=== PATIENT | male | born 1980 | race Caucasian/White ===

== ENCOUNTER 2020-08-30 14:34 | Emergency (ER) | payer OTHER, SELFPAY ==
[2020-08-30] VITALS (7 sets, daily range): BP systolic 118–150; BP diastolic 74–96; PULSE 62–97; RESP 14–18; TEMP 36.2–36.4; O2SAT 95–100; BMI 31.2
--- NOTE | 2020-08-30 15:13 | CT_ITS ---
WS: [id number] CT cervical spin wo con* [id number] REASON FOR EXAM: neck pain s/p fall IV CONTRAST ADMINISTERED: Noncontrast TOTAL EXAM DLP: 638.[address] scans at [facility] use at least one of these dose optimization techniques: automat ed exposure control; mA and/or kV adjustment per patient size (includes targeted exams where dose is matched to clinical indication); or iterative reconstruction. FINDINGS: No vertebral body compression deformity. Normal alignment of the cervical vertebral bodies. Normal odontoid. Normal atlantoaxial articulations. Normal facet joints. Mild to moderate narrowing of the C7-T1 disc interspace, otherwise no significant disc disease. No soft tissue abnormality. CT/CT cervical spin wo con* [id number] IMPRESSION: No acute abnormality.
--- NOTE | 2020-08-30 15:13 | CT_ITS ---
WS: [id number] CT head wo con* [id number] REASON FOR EXAM: head injury IV CONTRAST ADMINISTERED: Noncontrast TOTAL EXAM DLP: 915.[address] scans at [facility] use at least one of these dose optimization techniques: automat ed exposure control; mA and/or kV adjustment per patient size (includes targeted exams where dose is matched to clinical indication); or iterative reconstruction. FINDINGS: The bony calvarium intact. There is no midline shift or other significant mass effect. No findings of intracranial hemorrhage. No focal brain parenchymal abnormality. Normal ventricles. Normal posterior fossa. CT/CT head wo con* [id number] IMPRESSION: No acute intracranial abnormality.
[2020-08-30 16:09] LABS: Add Urine Microscopic? NO
[2020-08-30 16:31] LABS: Bilirubin Urine Neg (Negative); Blood Urine Neg (Negative); Glucose Urine UA Norm (Normal); Ketones Urine Negative (Negative); Leukocyte Esterase Urine Negative (Negative); Nitrate Urine Negative (Negative); Protein Urine Neg (Negative); Urine Appearance Clear (CLEAR); Urine Color Yellow (Yellow); Urobilinogen Urine 1 mg/dL (Negative); pH Urine 5 (5-7)
--- NOTE | 2020-08-30 16:32 | PC.NURSE ---
Pt ambulating in WR. Pt reports he has been going outside to get some fresh air d/t anxiety with mask on and too many people.
--- NOTE | 2020-08-30 18:22 | ED_ITS ---
HPI - Syncope General: Chief Complaint: Syncope Stated Complaint: fell out of truck/lost consciousness Time Seen by Provider: 08/30/20 18:22 Source: patient Mode of arrival: ambulatory Limitations: no limitations Review of Systems General: Reports: 10 or more systems reviewed and unremarkable except in HPI and below Physical Exam Const: COMMON NORMALS: no acute distress and patient oriented x3 GENERAL APPEARANCE: cooperative HENMT: COMMON NORMALS: normocephalic, TM's normal bilaterally and Normal external nose present HEAD & SCALP: normal to inspection and normocephalic NOSE: Normal external nose present TYMPANIC MEMBRANE: TM's normal bilaterally MOUTH: Normal oral and palatal mucosa present THROAT: posterior oropharynx normal Eye: GENERAL EYE: appearance normal, both eyes and all related structures Neck/C-Spine: COMMON NORMALS: full ROM Lymph: LYMPHATIC: no lymphadenopathy noted Chest: COMMONS NORMALS: normal inspection of the chest Resp: COMMON NORMALS: normal respiratory effort EFFORT & INSPECTION: Yes able to speak in complete sentences Cardio: COMMON NORMALS: regular rate and regular rhythm RATE: regular rate RHYTHM: regular rhythm GI: COMMON NORMALS: non-tender : COMMON NORMALS: Yes no CVA tenderness BLADDER/KIDNEY EXAM: Yes no CVA tenderness Back/Pelvis: COMMON NORMALS: no CVA tenderness and thoracic and lumbar spine normal to inspection Extremity: COMMON NORMALS: normal to inspection Neuro: COMMON NORMALS: patient oriented x3 and moves all extremities Psych: COMMON NORMALS: mental status grossly normal and cooperative Skin: COMMON NORMALS: no rashes or lesions noted GENERAL SKIN EXAM: no rashes or lesions noted Course Vital Signs: Vital signs: Vital Signs Temperature 97.6 F 08/30/20 17:20 Pulse Rate 62 08/30/20 20:22 Respiratory Rate 14 08/30/20 20:22 Blood Pressure 118/74 08/30/20 20:22 Pulse Oximetry 100 08/30/20 20:22 MDM - Syncope MDM Narrative: Medical decision making narrative: 40-year-old male comes in today after a possible syncopal event and fall. Patient appears well. Patient denies any pain or difficulty except when his left shoulder and back. Differential diagnosis includes vasovagal syncope, ACS, head injury. CT of the head was negative. X-rays of the back, cervical spine, and shoulder were ne gative. Laboratory values were all normal. Troponin was negative. EKG was normal sinus rhythm. Orthostatic blood pressures were normal. Reviewed exam with patient and recommendations for treatment and follow-up. Patient reported understanding and agreed to plan. Lab Data: Labs: Lab Results 08/30/20 08/30/20 08/30/20 Range/Units 15:50 18:30 18:30 WBC 8.6 (4.0-10.0) 10^3/ uL RBC 5.35 H (4.1-5.3) 10^6/u L Hgb 16.0 (11.7-16.6) g/dL Hct 47.6 (42.0-52.0) % MCV 89.0 (80-94) fL MCH 29.9 (28.0-34.0) pg MCHC 33.6 (30.0-36.0) g/dL RDW 12.4 (12.1-15.1) % Plt Count 214 (130-400) 10^3/c mm MPV 11.1 H (7.4-10.4) fL Neut % (Auto) 61.6 % Lymph % (Auto) 30.1 % [place] % (Auto) 5.9 % Eos % (Auto) 1.6 % Baso % (Auto) 0.6 % Neut # (Auto) 5.29 (1.8-7.7) 10^3/u L Lymph # (Auto) 2.6 (0.8-4.8) 10^3/u L [place] # (Auto) 0.5 (0.2-0.9) 10^3/u L Eos # (Auto) 0.1 (0.0-0.8) 10^3/u L Baso # (Auto) 0.1 (0.0-0.1) 10^3/u L Nucleated RBC % (a uto) 0 % Nucleated RBCs # 0.0 /100WBC Sodium 140 (136-145) mmol/L Potassium 4.0 (3.5-5.1) mmol/L Chloride 104 (98-107) mmol/L Carbon Dioxide 27 (22-29) mmol/L Anion Gap 13.0 (5-19) BUN 18 (6-20) mg/dL Creatinine 1.1 (0.7-1.2) mg/dL GFR Calculation 73.4 L (90-130) mL/min Glucose 114 (65-115) mg/dL Calculated Osmolal ity 293 (285-295) mOsm/k g Calcium 9.1 (8.5-10.5) mg/dL Total Bilirubin 0.3 (0.15-1.2) mg/dL AST 15 (0-40) U/L ALT 21 (0-41) U/L Alkaline Phosphata se 69 (40-130) IU/L Troponin T Gen 5 n g/L (0-15) ng/L Total Protein 6.8 (6.6-8.7) g/dL Albumin 4.6 (3.5-5.2) g/dL Globulin 2.2 (1.3-4.6) g/dL Urine Color Yellow (Yellow) Urine Appearance Clear (CLEAR) Urine pH 5 (5-7) Ur Specific Gravit y 1.020 (1.005-1.030) Urine Protein Neg (Negative) Urine Glucose (UA) Norm (Normal) Urine Ketones Negative (Negative) Urine Blood Neg (Negative) Urine Nitrate Negative (Negative) Urine Bilirubin Neg (Negative) Urine Urobilinogen 1 H (Negative) mg/dL Ur Leukocyte Michelle ase Negative (Negative) 08/30/20 Range/Units 18:30 WBC (4.0-10.0) 10^3/ uL RBC (4.1-5.3) 10^6/u L Hgb (11.7-16.6) g/dL Hct (42.0-52.0) % MCV (80-94) fL MCH (28.0-34.0) pg MCHC (30.0-36.0) g/dL RDW (12.1-15.1) % Plt Count (130-400) 10^3/c mm MPV (7.4-10.4) fL Neut % (Auto) % Lymph % (Auto) % [place] % (Auto) % Eos % (Auto) % Baso % (Auto) % Neut # (Auto) (1.8-7.7) 10^3/u L Lymph # (Auto) (0.8-4.8) 10^3/u L [place] # (Auto) (0.2-0.9) 10^3/u L Eos # (Auto) (0.0-0.8) 10^3/u L Baso # (Auto) (0.0-0.1) 10^3/u L Nucleated RBC % (a uto) % Nucleated RBCs # /100WBC Sodium (136-145) mmol/L Potassium (3.5-5.1) mmol/L Chloride (98-107) mmol/L Carbon Dioxide (22-29) mmol/L Anion Gap (5-19) BUN (6-20) mg/dL Creatinine (0.7-1.2) mg/dL GFR Calculation (90-130) mL/min Glucose (65-115) mg/dL Calculated Osmolal ity (285-295) mOsm/k g Calcium (8.5-10.5) mg/dL Total Bilirubin (0.15-1.2) mg/dL AST (0-40) U/L ALT (0-41) U/L Alkaline Phosphata se (40-130) IU/L Troponin T Gen 5 n g/L 6 (0-15) ng/L Total Protein (6.6-8.7) g/dL Albumin (3.5-5.2) g/dL Globulin (1.3-4.6) g/dL Urine Color (Yellow) Urine Appearance (CLEAR) Urine pH (5-7) Ur Specific Gravit y (1.005-1.030) Urine Protein (Negative) Urine Glucose (UA) (Normal) Urine Ketones (Negative) Urine Blood (Negative) Urine Nitrate (Negative) Urine Bilirubin (Negative) Urine Urobilinogen (Negative) mg/dL Ur Leukocyte Michelle ase (Negative) Discharge Plan Discharge Patient Disposition: Home Clinical Impression: Vasovagal syncope Acute shoulder pain due to trauma Qualifiers: Laterality: left Qualified Code(s): M25.512 - Pain in left shoulder Back pain Qualifiers: Back pain location: thoracic back pain Chronicity: acute Back pain laterality: unspecified Qualified Code(s): M54.6 - Pain in thoracic spine Condition: Stable Prescriptions: New EC-Naproxen 500 mg tablet,delayed release (DR/EC) 500 mg PO BID Qty: 20 RF: 0 tizanidine 4 mg tablet 4 mg PO BID PRN (Reason: muscle spasticity) Qty: 14 RF: 0 No Action tramadol 50 mg tablet 50 mg PO TID RF: 0 Discharge Orders: Discharge Order (Routine); Ordered 08/30/20 Ordered By: John Garcia Referrals: Pradeep Matt DO [Primary Care Provider] - Discharge Diet: Usual diet Discharge Activity: Increase activity as tolerated Patient Instructions: Back Pain (ED) Activity Restrictions/Additional Instructions: Drink plenty of fluids. Activity as tolerated. Gentle stretching and range of motion exercises. Healthy diet and activity. Take medications as directed. Follow-up with primary care in 3 days for recheck. Return to the emergency department for new concerns. Discharge Date/Time: 08/30/20 20:23 Coding Level of Care Code ED Senior Statistician for Chg Fwd Exam Comprehensive
--- NOTE | 2020-08-30 18:24 | ECG_ITS ---
[facility] Test Date: 2020-08-30 Pat Name: Yuriy Hennessy Department: Room: Gender: Male Game Operator: : 1980 Requested By: Lyndsey Rock Order Number: [id number] Reading MD: ALMA CARRION Measurements Intervals [place] Rate: 85 P: 37 W[place]: 169 QRS: 93 QRSD: 106 T: 56 QT: 354 QTc: 422 Interpretive Statements SINUS RHYTHM BORDERLINE RIGHT AXIS DEVIATION [QRS AXIS > 90] No previous ECG available for comparison Electronically Signed On 08-30-2020 19:31:47 LABEL FOLDER by ALMA CARRION [email or web address]
--- NOTE | 2020-08-30 18:33 | XRR_ITS ---
PROCEDURE INFORMATION: Exam: XR Left Shoulder Exam date and time: 08/30/2020 7:02 PM Age: 40 years old Clinical indication: Pain and injury or trauma; Blunt trauma (contusions or hematomas); Shoulder; Left; Injury date: 08/30/20; Patient HX: Fall from truck loss of consciousness; Additional info: Fall, pain TECHNIQUE: Imaging protocol: XR Left shoulder. Views: 2 or more views. COMPARISON: No relevant prior studies available. FINDINGS: Bones/joints: Normal. Soft tissues: Normal. XR/XR shoulder LT min 2V* [id number] IMPRESSION: No acute findings.
--- NOTE | 2020-08-30 18:33 | XRR_ITS ---
PROCEDURE INFORMATION: Exam: XR Thoracic Spine, 3 Views Exam date and time: 08/30/2020 7:04 PM Age: 40 years old Clinical indication: Injury or trauma; Blunt trauma (contusions or hematomas); Injury date: 08/30/20; Patient HX: Fall from truck loss of consciousness TECHNIQUE: Imaging protocol: XR of the thoracic spine, 3 views. COMPARISON: [facility] Thoracic Spine 3 views 05/02/2015 10:19 AM FINDINGS: Bones/joints: Minimal convex left upper thoracic scoliosis. No spondylolisthesis. Vertebral body height is maintained. No acute fracture. Visible portions of the ribs are intact. Soft tissues: Unremarkable. Lungs: Visible portions of the lungs are clear. XR/XR thoracic spine 3V* [id number] IMPRESSION: No acute fracture.
[2020-08-30 18:39] LABS: Basophils # 0.1 10^3/uL (0.0-0.1); Basophils % 0.6 %; Eosinophils # 0.1 10^3/uL (0.0-0.8); Eosinophils % 1.6 %; Hematocrit 47.6 % (42.0-52.0); Lymphocytes # 2.6 10^3/uL (0.8-4.8); Lymphocytes % 30.1 %; Mean Corpuscular HGB Conc 33.6 g/dL (30.0-36.0); Mean Corpuscular Hemoglobin 29.9 pg (28.0-34.0); Mean Platelet Volume 11.1 fL (7.4-10.4); Monocytes # 0.5 10^3/uL (0.2-0.9); Monocytes % 5.9 %; Neutrophils # 5.29 10^3/uL (1.8-7.7); Neutrophils % 61.6 %; Nucleated Red Blood Cells % 0 %; Platelet Count 214 10^3/cmm (130-400); Red Blood Count 5.35 10^6/uL (4.1-5.3); Red Cell Distribution Width 12.4 % (12.1-15.1); White Blood Count 8.6 10^3/uL (4.0-10.0)
[2020-08-30 19:05] LABS: Alanine Aminotransferase 21 U/L (0-41); Albumin Level 4.6 g/dL (3.5-5.2); Alkaline Phosphatase 69 IU/L (40-130); Aspartate Amino Transferase 15 U/L (0-40); Blood Urea Nitrogen 18 mg/dL (6-20); Calcium 9.1 mg/dL (8.5-10.5); Carbon Dioxide 27 mmol/L (22-29); Chloride 104 mmol/L (98-107); Globulin 2.2 g/dL (1.3-4.6); Glomerular Filtration Rate 73.4 mL/min (90-130); Glucose 114 mg/dL (65-115); Osmolality Calculated 293 mOsm/kg (285-295); Sodium 140 mmol/L (136-145); Total Bilirubin 0.3 mg/dL (0.15-1.2); Total Protein 6.8 g/dL (6.6-8.7)
[2020-08-30 19:56] LABS: Troponin T (5th) Once 6 ng/L (0-15)
== END 2020-08-30 20:23 | disposition home or self-care (01) ==
PROVIDERS: Nurse Practitioner Family; Emergency Provider Nurse Practitioner Family; PCP Internal Medicine
DX: R55 Syncope and collapse (principal); G89.11 Acute pain due to trauma; M25.512 Pain in left shoulder; M54.6 Pain in thoracic spine
CPT/HCPCS: 12345; 70450; 72072; 72125; 73030; 80053; 81003; 84484; 85025; 93005; 99283

== ENCOUNTER → 2024-09-27 10:17 | Outpatient (BNVA) | payer BC, SELFPAY | PROVIDERS: Visit Provider Family Medicine | DX: Z13.6 Encounter for screening for cardiovascular disorders (principal); K21.9 Gastro-esophageal reflux disease without esophagitis | CPT/HCPCS: 80053; 80061; 83721; 84439; 84443; 85025 ==

== ENCOUNTER 2024-11-15 06:22 | Day surgery (SDC) | payer BC, SELFPAY ==
[2024-11-15 06:33] VITALS: BP 117/88; PULSE 85; RESP 18; TEMP 36.7; O2SAT 96
[2024-11-15] MEDS: sodium chloride 0.9% 500 ML 15 ML IV (06:45)
[2024-11-15 06:47] VITALS: BMI 31.2
--- NOTE | 2024-11-15 07:12 | P.ANESASSM_ITS ---
Pre-Anesthetic Assessment Height/Weight: Height 6 ft 3 in Weight 250 lb Temp Pulse Resp BP Pulse Ox O2 Del Method 98.0 F 85 18 117/88 96 Room Air 11/15/24 06:33 11/15/24 06:33 11/15/24 06:33 11/15/24 06:33 11/15/24 06:33 11/15/24 06:33 Preop Diagnosis: Screening colonoscopy Operation Date: 11/15/24 07:30 Proposed Procedures p [id number], G0121, Z12.11(Not Applicable) - Payam Dumas DO Was Beta Anthony taken within 24 hours: N/A Was Clonidine taken within 24 hours: N/A Last intake: Intake Last Liquid Date 11/14/24 Last Liquid Time 22:00 Last Solid Date 11/13/24 Last Solid Time 19:00 Social Tobacco and No alcohol Exam alert, oriented x 3, clear to auscultation bilaterally and regular rate & rhythm Airway Submandibular: within normal limits Cervical ROM: within normal limits Mallampati: Class II Dentition: full Comments: Comments: Multiple missing teeth on the top, denies any loose Anesthetic Plan ASA status: 2 Anesthesia: MAC Other: No prior issues with anesthesia Completed bowel prep History of GERD, diet controlled On chronic tramadol for back pain Current smoker Labs reviewed from September and acceptable for procedure METs greater than 4 Plan for MAC anesthetic Medications/Allergies Home Medications Medication Instructions Recorded Confirmed Last Taken Type tramadol 50 mg tablet 50 mg PO Q6H PRN Pain 09/27/24 11/14/24 11/14/24 History Allergies Allergy/AdvReac Type Severity Reaction Status Date / Time No Known Allergies Allergy Verified 11/14/24 08:26 [facility] Anesthesia Medical History Umbilical hernia Tobacco use disorder GERD (gastroesophageal reflux disease) Scoliosis Chronic back pain Surgical History Hx of appendectomy Family History Mother Breast cancer Diabetes Grandfather Cancer skin Social History Smoking and tobacco/nicotine status: current every day tobacco/nicotine user cigarettes [ Other cigarette details: 1PPD, 28PY] Alcohol intake: never Substance/Drug Use: never Data Anesthesia Cardiac Studies: No Data to Display
--- NOTE | 2024-11-15 07:32 | W.PM.OPSUD ---
Surgery/Procedure H&P Update DATE OF PROCEDURE: November 15, 2024 DATE H&P PERFORMED: 11/06/24 H&P UPDATE INFORMATION: I have reviewed H&P completed within last 30 days, I have examined patient prior to procedure and No changes to prior documentation PREOP DIAGNOSIS: Screening colonoscopy PLANNED PROCEDURE: Operation Date: 11/15/24 07:30 Proposed Procedures p [id number], G0121, Z12.11(Not Applicable) - Payam Dumas DO
[2024-11-15 08:07] VITALS: BP 109/73; PULSE 90; RESP 18; TEMP 36.2; O2SAT 91
[2024-11-15 08:29] VITALS: BP 117/83; PULSE 75; RESP 18; O2SAT 94
--- NOTE | 2024-11-15 08:45 | ANE.PACU2 ---
Inpatient post-anesthesia follow up: Airway intact: Yes Vital signs: Temperature 97.1 F Pulse Rate 75 Respiratory Rate 18 Blood Pressure 117/83 Pulse Oximetry 94 Oxygen Delivery Me thod Room Air Oxygen Flow Rate Fraction of Inspir ed Oxygen Hydration adequate: Yes Nausea and vomiting: No Pain level: 1 Mental status: Baseline
--- NOTE | 2024-11-15 13:19 | PC.NURSE ---
0800 - Cold snare requested by Dr. Dumas. Inserted into scope but not used.
== END 2024-11-15 08:40 | disposition home or self-care (01) ==
PROVIDERS: Visit Provider Surgery
PROC: 0DJD8ZZ Inspection of Lower Intestinal Tract, Via Natural or Artificial Opening Endoscopic (ICD-10-PCS; CPT 45378; principal; 2024-11-15 07:30)
DX: Z12.11 Encounter for screening for malignant neoplasm of colon (principal); K21.9 Gastro-esophageal reflux disease without esophagitis; Z79.891 Long term (current) use of opiate analgesic; G89.29 Other chronic pain; M54.9 Dorsalgia, unspecified; F17.210 Nicotine dependence, cigarettes, uncomplicated
CPT/HCPCS: 45378; J2371; J2704; J7040

== ENCOUNTER 2024-11-28 09:31 | Day surgery (SDC) | payer BC, SELFPAY ==
[2024-11-28] VITALS (11 sets, daily range): BP systolic 103–136; BP diastolic 75–92; PULSE 60–86; RESP 12–18; TEMP 36.1–37; O2SAT 93–100; BMI 31.2
[2024-11-28] MEDS: sodium chloride 0.9% 1,000 ML 30 ML IV (09:57)
--- NOTE | 2024-11-28 10:46 | ANES.PREANE2 ---
Pre-Anesthetic Assessment Height/Weight: Height 1.91 m Weight 113.398 kg Temp Pulse Resp BP Pulse Ox O2 Del Method 97.0 F L 86 18 125/84 96 Room Air 11/28/24 09:49 11/28/24 09:49 11/28/24 09:49 11/28/24 09:49 11/28/24 09:49 11/28/24 09:51 Operation Date: 11/28/24 12:25 Proposed Procedures p Laparoscopic Umbilical Hernia Repair with mesh [id number], K42.9(Not Applicable) - Payam Dumas DO Familial anesthetic complications: none Was Beta Anthony taken within 24 hours: N/A Was Clonidine taken within 24 hours: N/A Last intake: Intake Last Liquid Date 11/27/24 Last Liquid Time 23:58 Last Solid Date 11/27/24 Last Solid Time 19:00 Social Tobacco and No alcohol Exam alert, oriented x 3, clear to auscultation bilaterally and regular rate & rhythm Airway Mallampati: Class IV Dentition: other (missing) GI Gastroesophageal Reflux Disease Anesthetic Plan ASA status: 2 Anesthesia: General Risk of > 500 ml blood loss (7ml/kg in children): No Medications/Allergies Home Medications ?Medication ?Instructions ?Recorded ?Confirmed ?Last Taken ?Type tramadol 50 mg tablet 50 mg PO Q6H PRN Pain 09/27/24 11/27/24 11/27/24 History Allergies Allergy/AdvReac Type Severity Reaction Status Date / Time No Known Allergies Allergy Verified 11/14/24 08:26 Current Medications Generic Name Dose Route Start Last Admin Trade Name Freq PRN Reason Stop Dose Admin Sodium Chloride 1,000 mls @ 30 mls/hr 11/28/24 09:45 11/28/24 09:57 Sodium Chloride 0.9% IV 11/29/24 09:44 30 mls/hr .Q24H DEION Administration PFSH Anesthesia Medical History Umbilical hernia Tobacco use disorder GERD (gastroesophageal reflux disease) Scoliosis Chronic back pain Surgical History Hx of appendectomy Family History Mother Breast cancer Diabetes Grandfather Cancer skin Social History Smoking and tobacco/nicotine status: current every day tobacco/nicotine user cigarettes [ Other cigarette details: 1PPD, 28PY] Alcohol intake: never Substance/Drug Use: never Data Anesthesia Cardiac Studies: No Data to Display
--- NOTE | 2024-11-28 10:55 | W.PM.OPSUD ---
Surgery/Procedure H&P Update DATE OF PROCEDURE: November 28, 2024 DATE H&P PERFORMED: 11/06/24 H&P UPDATE INFORMATION: I have reviewed H&P completed within last 30 days, I have examined patient prior to procedure and No changes to prior documentation PLANNED PROCEDURE: Operation Date: 11/28/24 12:25 Proposed Procedures p Laparoscopic Umbilical Hernia Repair with mesh [id number], K42.9(Not Applicable) - Payam Dumas, DO
[2024-11-28] MEDS: ceFAZolin 2,000 mg SDV 2000 MG IVP (11:35)
[2024-11-28] MEDS: lidocaine-epi 2% PF 1:200,000 20 mL SDV 10 ML XX (11:54)
--- NOTE | 2024-11-28 12:38 | P.OP_ITS ---
Operative Report Date of procedure: November 28, 2024 Pre-op diagnosis: Umbilical hernia Post-op diagnosis: same Procedure done: Laparoscopic umbilical hernia repair with mesh Implants: 11 cm round Ventralight mesh Specimens removed/disposition: Hernia sac Surgeon: Payam Dumas DO Anesthesia: General and Local Estimated blood loss (mL): 5 Complications: None apparent Brief History: This is a very pleasant 44-year-old gentleman who came into my office with pain around a reducible umbilical hernia. Laparoscopic repair with mesh was indicated. The risks and benefits were explained and documented. Procedure: Patient was wheeled into the operative room and placed on the OR table in a supine position. Abdomen was inspected prepped and draped in usual sterile fashion. Time-out was performed and all present were in agreement. A 15 blade scalp was used to make a 5 millimeter incision left upper quadrant. A Veress needle was placed into the incision and intra-abdominal insufflation was brought to 15 millimeters of mercury. A 12 millimeter trocar was placed into the left lower quadrant. The energy but device was then used to cut out the hernia sac. Hernia defect measured 1.5 cm in greatest diameter. An 11 cm round Ventralight mesh was placed into the abdomen and brought up through the umbilicus using an the Paul-Luther. The mesh was then tacked in place in a double crown fashion. The skeleton of the mesh was removed via the left lower quadrant. The hernia sac was then removed from the abdomen via the left lower quadrant. The left lower quadrant port site was closed with an 0 Vicryl suture in a Paul- Luther in a vsyhnw-[id number] fashion. Incisions were closed with 4 O Vicryl in a subcuticular interrupted fashion. Skin glue was applied. A dressing that included cotton balls and a Tegaderm was placed over the umbilicus. Patient tolerated the procedure well.
[2024-11-28] MEDS: fentaNYL 50 mcg/mL INJ 2mL IVP (13:18)
[2024-11-28] MEDS: HYDROcodone-acetaminophen 7.5-325 mg Tablet 1 TAB PO (14:00)
--- NOTE | 2024-11-28 14:05 | ANE.PACU2 ---
Inpatient post-anesthesia follow up: Airway intact: Yes Vital signs: Temperature 97.8 F Pulse Rate 69 Respiratory Rate 16 Blood Pressure 103/75 Pulse Oximetry 95 Oxygen Delivery Me thod Room Air Oxygen Flow Rate 10 Fraction of Inspir ed Oxygen Hydration adequate: Yes Nausea and vomiting: No Pain level: 1 Mental status: Baseline
== END 2024-11-28 14:05 | disposition home or self-care (01) ==
PROVIDERS: Visit Provider Surgery
PROC: 0WQF4ZZ Repair Abdominal Wall, Percutaneous Endoscopic Approach (ICD-10-PCS; CPT 49591; principal; 2024-11-28 12:25)
DX: K42.9 Umbilical hernia without obstruction or gangrene (principal); F17.210 Nicotine dependence, cigarettes, uncomplicated; K08.409 Partial loss of teeth, unspecified cause, unspecified class; K21.9 Gastro-esophageal reflux disease without esophagitis; Z79.899 Other long term (current) drug therapy
CPT/HCPCS: 49591; 88302; C1781; J0690; J1100; J2250; J2405; J2704; J3010; J3490; J7030